=== PATIENT | female | born 1960 | race Caucasian/White ===

== ENCOUNTER → 2021-06-24 | Day surgery (SDC) | payer OTHER ==
[~2021-06-24] VITALS: Ht 167.6 cm; Wt 99.3 kg
[~2021-06-24] MED LIST: ALL DAY ALLERGY10 MG PO; CELEBREX200 MG PO; GLIMEPIRIDE4 MG PO; HAIR SKIN NAIL1 EACH PO; METFORMIN HCL500 MG PO; PRINIVIL20 MG PO; VITAMIN D325 MC4 PO
== END | disposition home or self-care (01) ==
LOC: FAS 06:26
DX: Z12.11 Encounter for screening for malignant neoplasm of colon (principal); K64.8 Other hemorrhoids; E53.8 Deficiency of other specified B group vitamins; E11.9 Type 2 diabetes mellitus without complications; E61.1 Iron deficiency; K29.50 Unspecified chronic gastritis without bleeding; I10 Essential (primary) hypertension; Z80.0 Family history of malignant neoplasm of digestive organs; Z98.84 Bariatric surgery status; Z79.84 Long term (current) use of oral hypoglycemic drugs; Z79.899 Other long term (current) drug therapy
CPT/HCPCS: 43239; G0105; 82962; J2250; J2704; J7120